=== PATIENT | male | born 1960 | race Caucasian/White ===

== ENCOUNTER 2018-06-19 19:42 | Emergency (ER) | payer OTHER ==
[~2018-06-19] VITALS: Ht 160 cm; Wt 68.9 kg
[2018-06-19] MEDS ORDERED: SOD CHLORIDE 0.9% 1,000 ML IV STA (19:51)
[2018-06-19] MEDS ORDERED: THIAMINE 100 MG TAB PO STA (19:51)
[2018-06-19 19:52] VITALS: Ht 160 cm; Wt 68.9 kg
--- NOTE | 2018-06-19 19:56 | ERD ---
ER Documentation Chief Complaint Chief Complaint Transient altered mental status HPI During the patient's encounter translation services were utilized Language: Hollyian Source: In person 57-year-old gentleman history of daily alcohol use who presents with a transient episode of altered mental status. History mostly provided by patient and paramedics. It appears that he was drinking today and he went to the bathroom when he was coming back from the bathroom the family noted that he was altered and potentially dragging a foot they reported potentially the left foot. Paramedics noted right-sided deficit and weakness that lasted approximately 4 minutes and has since resolved. Charge nurse noted some shakiness of the right side when transferring the patient from her medic rig to the bed. The patient himself states that he was standing up in the bathroom and has a temporary timeframe where he does not recall events. Currently the patient denies any headache chest pain or shortness of breath. He denies any weakness. He does state that he drinks alcohol regularly. He denies hematemesis or melena. ROS All systems reviewed and are negative except as per history of present illness. Allergies Allergies: Coded Allergies: No Known Allergy (Unverified , 06/19/18) FmHx Family History: No diabetes Physical Exam Vitals Vital Signs Date Temp Pulse Resp B/P (MAP) Pulse Ox O2 O2 Flow FiO2 Time Delivery Rate 06/19/18 Nasal 19:54 Cannula 06/19/18 98.7 57 19 168/79 97 Room Air 19:54 (108) 06/19/18 98.7 56 19 165/88 97 19:52 (113) Physical Exam General: Well developed, well nourished, no acute distress Head: Normocephalic, atraumatic. Eyes: Pupils equally reactive, EOM intact ENT: Moist mucous membranes Neck: Supple, no lymphadenopathy Respiratory: Lungs clear bilaterally, no distress Cardiovascular: RRR, no murmurs, rubs, or gallops Abdominal: Soft, non-tender, non-distended, no peritoneal signs : Deferred MSK: No edema, no unilateral swelling, 5/5 strength Neurologic: Alert and oriented, moving all extremities, normal speech, no focal weakness, no cerebellar signs, no pronator drift, normal rapid alternating movements, NIH SS of 0 Skin: No rash Psych: Normal mood Result Diagram: 06/19/18200606/19/182006 Results 24 hrs Laboratory Tests Test 06/19/18 20:06 06/19/18 20:07 06/19/18 20:10 06/19/18 20:36 Prothrombin Time 11.5 Sec Prothrombin Time 0.9 Ratio INR International 0.83 Normalized Ratio Activated 26.0 Sec Partial Thrombopl ast Time Bedside Glucose 96 mg/dL White Blood Count 7.2 10^3/ul Red Blood Count 5.24 10^6/ul Hemoglobin 14.9 g/dl Hematocrit 45.6 % Mean Corpuscular 87.0 fl Volume Mean Corpuscular 28.4 pg Hemoglobin Mean Corpuscular 32.7 g/dl Hemoglobin Concen t Red Cell 14.1 % Distribution Width Platelet Count 258 10^3/UL Mean Platelet 10.2 fl Volume Immature 0.400 % Granulocytes % Neutrophils % 59.8 % Lymphocytes % 29.7 % Monocytes % 7.4 % Eosinophils % 2.0 % Basophils % 0.7 % Nucleated Red 0.0 /100WBC Blood Cells % Immature 0.030 10^3/ul Granulocytes # Neutrophils # 4.3 10^3/ul Lymphocytes # 2.1 10^3/ul Monocytes # 0.5 10^3/ul Eosinophils # 0.1 10^3/ul Basophils # 0.1 10^3/ul Nucleated Red 0.0 10^3/ul Blood Cells # Sodium Level 140 mmol/L Potassium Level 4.0 mmol/L Chloride Level 105 mmol/L Carbon Dioxide 27 mmol/L Level Anion Gap 8 Blood Urea 12 mg/dl Nitrogen Creatinine 0.68 mg/dl Est Glomerular > 60 mL/min Filtrat Rate mL/min Glucose Level 99 mg/dl Calcium Level 9.4 mg/dl Total Bilirubin 0.3 mg/dl Direct Bilirubin 0.00 mg/dl Indirect 0.3 mg/dl Bilirubin Aspartate Amino 40 IU/L Transf (AST/SGOT) Alanine 40 IU/L Aminotransferase (ALT/SGPT) Alkaline 66 IU/L Phosphatase Troponin I < 0.012 ng/ml Total Protein 7.3 g/dl Albumin 4.1 g/dl Globulin 3.20 g/dl Albumin/Globulin 1.28 Ratio Free Thyroxine 2.02 ug/ml Index Thyroxine (T4) 6.4 ug/dl Triiodothyronine 31.6 % (T3) Uptake Ethyl Alcohol 30.0 mg/dl Level Urine Color YELLOW Urine Clarity CLOUDY Urine pH 7.0 Urine Specific 1.021 Spencer Urine Ketones NEGATIVE mg/dL Urine Nitrite NEGATIVE mg/dL Urine Bilirubin NEGATIVE mg/dL Urine 1+ mg/dL Urobilinogen Urine Leukocyte NEGATIVE Hilton/ul Esterase Urine Microscopic 1 /HPF RBC Urine Microscopic 2 /HPF WBC Urine Mucus FEW /HPF Urine Hemoglobin NEGATIVE mg/dL Urine Glucose NEGATIVE mg/dL Urine Total NEGATIVE mg/dl Protein Urine Opiates Negative Screen Urine Negative Barbiturates Urine Negative Amphetamines Screen Urine Negative Benzodiazepines Screen Urine Cocaine Negative Screen Urine Negative Cannabinoids Hemoglobin A1c 5.0 % Triglycerides 238 mg/dl Level Cholesterol Level 230 mg/dl LDL Cholesterol, 127 mg/dl Calculated HDL Cholesterol 55 mg/dl Cholesterol/HDL 4.1 RATIO Ratio Current Medications Medications Dose Sig/Octavia Start Time Status Last (Trade) Ordered Route PRN Stop Time Admin Dose Reason Admin Sodium 1,000 ml @ Q1H STAT 06/19/18 DC 06/19/18 Chloride 1,000 mls/hr IV 19:51 20:32 06/19/18 20:50 Thiamine 100 mg ONCE STAT 06/19/18 DC 06/19/18 HCl PO 19:51 21:27 (Vitamin B1) 06/19/18 19:53 Folic Acid 1 mg ONCE ONCE 06/19/18 DC 06/19/18 (Folic Acid) PO 20:00 21:26 06/19/18 20:01 Aspirin 162 mg ONCE ONCE 06/19/18 DC 06/19/18 (Aspirin) PO 21:30 21:15 06/19/18 21:31 IV Flush 10 ml STK-MED 06/19/18 DC (NS 10 ml) ONCE .ROUTE 21:17 06/19/18 21:18 Sodium 100 ml @ ud STK-MED 06/19/18 DC Chloride ONCE .ROUTE 21:17 06/19/18 21:18 Iohexol 100 ml @ ud STK-MED 06/19/18 DC ONCE .ROUTE 21:17 06/19/18 21:18 Iohexol 50 ml STK-MED 06/19/18 DC (Omnipaque ONCE .ROUTE 21:17 350mg/ ml) 06/19/18 21:18 Procedures/MDM EKG, MONITORS, & DIAGNOSTIC IMAGING: EKG: I reviewed and interpreted a 12-lead EKG. Rhythm: Normal sinus rhythm ST Changes: No contiguous ST segment elevations T waves: No contiguous T wave inversions Impression: [No evidence of acute cardiac ischemia] Chest x-ray: I reviewed and interpreted a 1 view of the chest Mediastinum: No enlargement Cardiac silhouette: No cardiomegaly Airspace: Clear lung main bilaterally without evidence of pneumothorax Bones: No evidence of fracture CT brain: IMPRESSION: Negative noncontrast CT brain Repeat CT brain: IMPRESSION: No acute intracranial abnormality. Findings reported to Dr. Barrios on 06/19/2018 8:56:26 PM. RPTAT: HMVK CTA: IMPRESSION: 1. Normal CTA of the neck. No evidence of aneurysm, hemodynamically significant stenosis or dissection. 2. Filling defect/thrombus involving the proximal left M1 segment, with trace amount of flow is seen along the inferior aspect of the thrombus and persistent flow in the distal M1/M2 segments. 3. The remaining intracranial vasculature is unremarkable. 4. No acute intracranial abnormality. No intracranial hemorrhage, mass lesion or hydrocephalous. CRITICAL RESULT: The above findings were discussed with Patient's physician Domo Barrios by telephone on 06/19/2018 10:17:30 PM. Measurements of cervical internal carotid artery stenosis were performed according to NASCET criteria, using distal ICA diameter as the denominator for stenosis measurement. RPTAT: [facility] LAB INTERPRETATION: I reviewed the laboratory testing and it shows [no evidence of acute process] MEDICAL DECISION MAKING: Patient presents with a transient episode of altered mental status, amnesia and focal deficit. Symptoms are possibly consistent with TIA, seizure activity, intracranial hemorrhage, Warnicke's encephalopathy among others. The patient warrants broad workup. At this point however the patient has an NIH SS of 0. The patient has no focal deficits. Patient has no deficits that would be life altering and therefore he is not a candidate for stroke code activation, TPA or interventional studies. Continue to monitor the patient. ER COURSE: * Thiamine and folic acid given. IV fluids provided. * Just after the patient arrived back from his initial CAT scan the family called me to the bedside because the patient had a change in neurologic status. At that point the patient had left gaze preference, right-sided facial droop sparing of the forehead with paralysis of the right upper extremity and weakness of the right lower extremity. A code stroke was initiated. * Patient's identified acute neurologic deficit was at 2030, code stroke was initiated at 2030. I spoke to Dr. Caro, on-call neurologist at 2036. Second conversation at 2105. We discussed that given the patient had acute neurologic change after the first CT repeat CT should be ordered. * Repeat CT is negative. Upon Dr. Caro's evaluation the patient has complete resolution of symptoms. The patient has no focal deficits. NIHSS at that time would be 0. The patient's recommendation from Dr. Caro is that no TPA is indicated. We discussed further observation. * I ordered a CTA to make sure that there was no evidence of flap or dissection or LVO. * CTA shows evidence of LV O and a left MCA distribution in the M1 segment. The patient remains neurologically intact without acute change. Aspirin was provided. * Prior to CTA reached out to Dr. Bunch at [facility] transfer center discussing the case. Dr. Bunch recommended CTA prior to transfer. Initial conversation at 9:11 PM. The results of the CTA were discussed with her at 1021 and she accepted the case for transfer. * Permissive hypertension being observed patient had repeat exam and remains neurologically intact with no focal deficit. Based on these findings the patient would not benefit from TPA but is potentially an interventional candidate. * Patient is stable and will be transferred to [facility] for definitive care. CONSULTATION: As noted above DISPOSITION PLAN: Transfer to [facility] for higher level of care for LVO and TIA type presentation. Critical Care Note: Total time: 45 minutes Indication/Organ System Threat: Potential stroke I spent the above amount of critical care time with the patient, not including billable procedures. This included chart review, consultations, repeat bedside evaluations, and titration of appropriate medications to prevent cardiopulmonary or respiratory collapse. Departure Diagnosis: Primary Impression: Transient ischemic attack Additional Impressions: Hypertensive urgency Alcohol abuse Condition: Serious DOMO BARRIOS MD Jun 19, 2018 19:56
[2018-06-19] MEDS ORDERED: FOLIC ACID 1 MG TAB PO ONE (20:00)
[2018-06-19] MEDS ORDERED: IOHEXOL 350MG/ML 50 ML BTL ONE (21:17)
[2018-06-19] MEDS ORDERED: IOHEXOL 100 ML ONE (21:17)
[2018-06-19] MEDS ORDERED: SOD CHLORIDE 0.9% 100 ML ONE (21:17)
[2018-06-19] MEDS ORDERED: ASPIRIN 81 MG TAB PO ONE (21:30)
--- NOTE | 2018-06-19 23:47 | CONS ---
DATE OF ADMISSION: 06/19/2018 DATE OF CONSULTATION: 06/19/2018 REASON FOR CONSULTATION: I was asked to see the patient for concerns of right-sided weakness. HISTORY OF PRESENT ILLNESS: The patient is a 57-year-old male with no known past medical history who presents an hour prior to admission with having transient right-sided weakness and slurred speech. The symptoms completely resolved and then began again about 40 minutes ago, lasted for 5 minutes then completely resolved. The patient has had no prior history of stroke. MEDICATIONS: The patient takes no medications. He has had a sore throat but no other recent illness. PHYSICAL EXAMINATION: VITAL SIGNS: The patient is afebrile. The patient's blood pressure is 153/86, his pulse rate is 50. His blood glucose is 96. The patient has no chest pain. He has no shortness of breath. The family and the patient agree that he is without symptoms currently. PAST MEDICAL HISTORY: Unknown. On evaluating the patient, a full NIH stroke scale score was completed, he scored a 0. The patient h ad a CT scan upon admission then after recurrence of the symptoms, both of which showed no acute foca l abnormalities. ASSESSMENT: This is a gentleman with unknown stroke risk factors who presents with waxing and waning symptoms that are likely consistent with a TIA. The patient should have a fluid bolus. He should b e given a Chewable aspirin 81 mg. He should be watched closely with q. hour neuro checks. The patie nt will benefit from a CTA of the head and neck to assess for large vessel disease. The patient shou ld be kept afebrile. His blood sugar should be kept between 80 and 180 mg/dL. I should be called fo r any recurrent symptoms as consideration for revascularization therapy could be made at that time. Dictated By: CHRISTOPHER KANG CM/PHIL Conf#: [id number] DID#: [id number]
[2018-06-19 23:49] VITALS: BP 148/74; PULSE 47; RESP 19
== END 2018-06-19 23:54 | disposition short-term general hospital (02) ==
LOC: E/R 19:42
DX: G45.9 Transient cerebral ischemic attack, unspecified (principal); I16.0 Hypertensive urgency; F10.10 Alcohol abuse, uncomplicated; R55 Syncope and collapse
CPT/HCPCS: 36415; 70450; 70496; 70498; 71045; 80053; 80061; 80307; 81001; 82962; 83036; 84436; 84479; 84484; 85025; 85610; 85730; 93005; J7030; Q9967; Z7502; Z7610